=== PATIENT | male | born 1955 | race Caucasian/White ===

== ENCOUNTER 2019-07-26 13:20 | Inpatient (IN) | payer MEDICAID, OTHER ==
[~2019-07-26] VITALS: Ht 177.8 cm; Wt 246.3 kg
[~2019-07-26 13:20] MED LIST: AMLO10TA7 PO; CITA40TA11 PO; DIGO250T16 PO; HYDR25TA4 PO; LOSA25TA3 PO; METO25TA4 PO; WARF2.5T47 PO
--- NOTE | 2019-07-26 13:25 | NUR ---
PT BIBRA FROM HOME C/O TESTICULAR SWELLING FOR 3 WEEKS, PT IS AAOX4, NOT IN RESPIRATORY DISTRESS, HOOKED TO MONITOR, KEPT RESTED AND COMFORTABLE, WILL CONTINUE TO MONITOR.
--- NOTE | 2019-07-26 13:35 | NUR ---
SEEN AND EXAMINED BY AVANI WEAVER
--- NOTE | 2019-07-26 13:40 | NUR ---
IV LINE ESTABLISHED BLOOD DRAWN AND SENT TO LAB.
[2019-07-26 13:55] LABS: BASOPHILS # (AUTO) 0.1 /CMM (0.0-0.2); BASOPHILS % (AUTO) 1.4 % (0.0-2.0); HEMATOCRIT 40 % (39-51); HEMOGLOBIN 12.8 g/dL (13.5-17.5); LYMPHOCYTES # (AUTO) 1.2 /CMM (0.8-4.8); LYMPHOCYTES % (AUTO) 21.1 % (20.0-44.0); MEAN CORPUSCULAR HGB CONC 32 g/dl (31.0-36.0); MEAN CORPUSCULAR VOLUME 92 fL (80-96); MONOCYTES # (AUTO) 0.6 /CMM (0.1-1.30); MONOCYTES % (AUTO) 10.6 % (2.0-12.0); NEUTROPHILS # (AUTO) 3.6 /CMM (1.8-8.9); NEUTROPHILS % (AUTO) 63.9 % (43.0-81.0); PLATELET COUNT (AUTO) 174 /CMM (150-450); RED BLOOD CELL COUNT(AUTO) 4.32 MIL/uL (4.5-6.0); WHITE BLOOD COUNT (AUTO) 5.6 K/uL (4.3-11.0)
--- NOTE | 2019-07-26 14:00 | NUR ---
AQUATIC PHYSIOTHERAPIST AT BEDSIDE FOR XRAY.
[2019-07-26 14:03] LABS: CALCIUM, SERUM 8.9 mg/dL (8.5-10.1); CARBON DIOXIDE 33 mmol/L (21-32); CHLORIDE 103 mmol/L (98-107); CREATININE 0.8 mg/dL (0.6-1.3); GLUCOSE 91 mg/dL (74-106); POTASSIUM 3.9 mmol/L (3.5-5.1); SODIUM SERUM 140 mmol/L (136-145); UREA NITROGEN, BLOOD 12 mg/dL (7-18)
[2019-07-26 14:20] LABS: ALANINE AMINOTRANSFERASE 20 U/L (12-78); ALBUMIN 2.8 g/dL (3.4-5.0); ALKALINE PHOSPHATASE 91 U/L (46-116); ASPARTATE AMINOTRANSFERASE 23 U/L (15-37); BILIRUBIN,DIRECT 0.4 mg/dL (0.0-0.2); BILIRUBIN,TOTAL 0.9 mg/dL (0.2-1.0); TOTAL PROTEIN, SERUM 7.6 g/dL (6.4-8.2)
[2019-07-26] MEDS ORDERED: NITROGLYCERIN PACKET 1 GM PACKET ONE (14:29)
[2019-07-26] MEDS ORDERED: NITROGLYCERIN PACKET 1 GM PACKET TD ONE (14:30)
[2019-07-26] MEDS ORDERED: ASPIRIN 81 MG TAB.CHEW PO ONE (14:30)
[2019-07-26] MEDS ORDERED: BUMETANIDE INJ 4 MG in IV NS 0.9% 50 ML IV ONE (14:30)
[2019-07-26] MEDS ORDERED: ASPIRIN 81 MG TAB.CHEW ONE (14:30)
[2019-07-26] MEDS ORDERED: METF-440 PO (14:39)
[2019-07-26] MEDS ORDERED: FURO20TA4 PO (14:39)
[2019-07-26] MEDS ORDERED: SERT100T12 PO (14:39)
[2019-07-26] MEDS ORDERED: TAMS-12 PO (14:39)
[2019-07-26] MEDS ORDERED: LISI30TA4 PO (14:39)
[2019-07-26] MEDS ORDERED: BUPR-51 PO (14:41)
--- NOTE | 2019-07-26 15:18 | NUR ---
PT PLACED ON O2 VIA NC @ 2LPM. NOTED 02 SAT @ 90% ON RA. SATTING 96% AFTER O2.
--- NOTE | 2019-07-26 16:00 | NUR ---
URINE SPECIMEN COLLECTED AND SENT TO LAB.
[2019-07-26 16:05] LABS: BILIRUBIN,URINE SMALL (NEGATIVE); BLOOD, URINE Small Ery/uL (NEGATIVE); COLOR,URINE Yellow (YELLOW); KETONES,URINE Negative (NEGATIVE); LEUKOCYTE ESTERASE ,URINE Negative (NEGATIVE); NITRITE, URINE Negative (NEGATIVE); PROTEIN,URINE Trace mg/dl (NEGATIVE); UGLUCOSE Negative (NEGATIVE)
[2019-07-26 16:29] LABS: APPEARANCE,URINE SLIGHTLY HAZY (CLEAR); BACTERIA,URINE Rare /HPF (None Seen); MUCUS,URINE Few /LPF (None Seen); SQUAMOUS EPITHELIAL CELL,UR Few /HPF (None Seen); URINE AMORPHOUS URATE Few /HPF (None Seen); WBC,URINE 0-2 /HPF (0-3)
--- NOTE | 2019-07-26 17:55 | NUR ---
PT REPORT GIVEN TO RN UCHE FOR LORA.
--- NOTE | 2019-07-26 18:42 | NUR ---
PT BEING TRANSPORTED TO UNIT WITH EMT AND RN AT BEDSIDE W/ ALCS PROTOCOL.
--- NOTE | 2019-07-26 19:00 | NUR ---
KEYSEATER OPERATOR NOTES Received patient awake on bed. On O2 inhalation with mild SOB/dyspnea on exertion. Able to move self on bed. Ambulatory with walker. On tele monitor with V-Pacing noted. Patient denies any discomfort at this time. Admission orders noted, pharmacy notified for the Bumex, awaiting for delivery of meds. Kept on bed clean, dry and comfortable. Call light within easy reach. On fall and aspiration precautions. Will continue to monitor accordingly.
[2019-07-26] MEDS ORDERED: MAG HYDROX/AL HYDROX/SIMETH 30 ML UDC PO PRN (19:30)
[2019-07-26] MEDS ORDERED: HYDROCODONE/APAP 5/325MG 1 EACH TABLET PO PRN (19:30)
[2019-07-26] MEDS ORDERED: ONDANSETRON HCL/PF 4 MG/2 ML VIAL IVP PRN (19:30)
[2019-07-26] MEDS ORDERED: ACETAMINOPHEN 325 MG TABLET PO PRN (19:30)
[2019-07-26] MEDS ORDERED: MAGNESIUM HYDROXIDE 30 ML UDC PO PRN (19:30)
[2019-07-26] MEDS ORDERED: Z GUARD REMEDY 2 OZ OINT TP PRN (19:30)
[2019-07-26] MEDS ORDERED: ZOLPIDEM TARTRATE 5 MG TABLET PO PRN (19:30)
[2019-07-26 20:00] VITALS: BP 105/72
[2019-07-26] MEDS ORDERED: BUMETANIDE INJ 12 MG in IV NS 0.9% 72 ML IV ONE (20:00)
[2019-07-26] MEDS: CEFTRIAXONE 1 G in IV D5W 50 ML IV SCH (20:52)
--- NOTE | 2019-07-26 22:23 | NUR ---
RN NOTES Received Bumex at this time. Administered as ordered.
[2019-07-27] VITALS: BP 112/68
[2019-07-27 04:00] VITALS: BP 110/70
[2019-07-27] MEDS: FUROSEMIDE 40 MG/4 ML VIAL IV SCH ×3 (06:18→14:10)
--- NOTE | 2019-07-27 06:33 | NUR ---
RN CLOSING NOTES Cleater reviewed patient's chart. New orders noted and carried. Discontinued tele monitoring as ordered. On bed, with O2 inhalation via NC, saturating well, minimal dyspnea on exertion noted. Due meds given as ordered. All nursing needs attended. On fall and aspiration precautions. Kept on bed clean, dry and comfortable. Endorsed.
--- NOTE | 2019-07-27 07:00 | NUR ---
MS/RN Patient received Patient received from night shift manager. A/O X4, vital signs stable, denies pain or discomfort. Edema noted to bilateral lower extremites and scrotum, encouraged to elevate. Cellulitis also to both lower legs, patient already has order for rocephin daily. Call light within reach, will continue to monitor and ensure safety.
--- NOTE | 2019-07-27 07:45 | NUR ---
MS/RN S/B Dr Lua Seen by Dr Lua - pacemaker to be checked by [facility] evalution documented, but no order.
[2019-07-27 08:00] VITALS: BP 123/69
--- NOTE | 2019-07-27 08:32 | NUR ---
WOUND CARE CONSULT: PT PRESENTS WITH BILATERAL WEEPING OF LOWER LEGS WITH VERY THICKENED SKIN AND EDEMA, PRESENT ON ADMISSION. DR SANCHES NOTIFIED OF DPM CONSULT REQUEST. PT NOTED TO HAVE VERY SWOLLENT SCROTAL AREA, PRESENT ON ADMISSION. RECOMMENDATIONS MADE FOR SKIN PROTECTION. DISCUSSED WITH NURSING STAFF. WILL SEE PRN. MYERS IN AGREEMENT WITH PLAN OF CARE. Addendum: 07/27/19 at 0833 by PERFECTO NEAL WNDNU Amended: Links added.
[2019-07-27] MEDS: SERTRALINE HCL 50 MG TABLET PO SCH (08:39)
[2019-07-27] MEDS: METFORMIN 500 MG TABLET PO SCH ×2 (08:40→17:25)
[2019-07-27] MEDS: LISINOPRIL (10MG) 10 MG TABLET PO SCH (08:41)
[2019-07-27 08:42] LABS: BASOPHILS % (AUTO) 0.5 % (0.0-2.0); EOSINOPHILS % (AUTO) 3.5 % (0.0-6.0); HEMATOCRIT 40 % (39-51); HEMOGLOBIN 12.8 g/dL (13.5-17.5); LYMPHOCYTES # (AUTO) 1.2 /CMM (0.8-4.8); LYMPHOCYTES % (AUTO) 19.6 % (20.0-44.0); MEAN CORPUSCULAR HGB CONC 32 g/dl (31.0-36.0); MEAN CORPUSCULAR VOLUME 91 fL (80-96); MONOCYTES # (AUTO) 0.7 /CMM (0.1-1.30); MONOCYTES % (AUTO) 11.2 % (2.0-12.0); NEUTROPHILS # (AUTO) 3.8 /CMM (1.8-8.9); NEUTROPHILS % (AUTO) 65.2 % (43.0-81.0); PLATELET COUNT (AUTO) 192 /CMM (150-450); RED BLOOD CELL COUNT(AUTO) 4.37 MIL/uL (4.5-6.0); WHITE BLOOD COUNT (AUTO) 5.9 K/uL (4.3-11.0)
[2019-07-27] MEDS: ENOXAPARIN SODIUM 40 MG/0.4 ML DISP.SYRIN SQ SCH (08:47)
[2019-07-27] MEDS: BUPROPION XL 150 MG TAB.ER.24 PO SCH (08:49)
[2019-07-27 09:04] LABS: CALCIUM, SERUM 8.6 mg/dL (8.5-10.1); CREATININE 0.8 mg/dL (0.6-1.3); MAGNESIUM 1.8 mg/dL (1.8-2.4); PHOSPHORUS 3.6 mg/dL (2.5-4.9); POTASSIUM 3.4 mmol/L (3.5-5.1)
[2019-07-27 09:14] LABS: THYROID STIMULATING HORMONE 1.941 uIU/mL (0.358-3.74)
--- NOTE | 2019-07-27 09:45 | NUR ---
MS/RN S/B Dr Abbott Seen by MD - labs ordered for tomorrow, arterial doppler ordered.
--- NOTE | 2019-07-27 10:36 | NUR ---
MS/RN Mattress Bariatric bed ordered from central supply, patient's weight 545lbs.
--- NOTE | 2019-07-27 13:35 | NUR ---
MS/institutional cook Call received from lab - blood culture drawn yesterday results -gram positive cocci in clusters. Will notify Dr Abbott.
--- NOTE | 2019-07-27 13:44 | NUR ---
MS/RN Orders Dr Abbott made aware of blood culture results, ID consult ordered.
--- NOTE | 2019-07-27 15:45 | NUR ---
Social service consult requested by MD due to pt residing alone. Per MD notes and chart review, pt is a 64-year-old male, brought in by paramedics. Patient lives by himself in an apartment. Patient states he has been having gradually worsening leg and testicular swelling for 1 month worse over the past 3 or 4 days. It is to the point where the patient cannot walk. Patient was found to have BP 1600, CXR suspicious for CHF, oxygen saturation of 89% and diffuse anasarca and was started on Bumex drip in ED. He also has bilateral foot wounds with erythema and increased warmth suspicious for cellulitis and will be started on IV abx. In lieu of Covid-19, HOUSE MOVER SUPERVISOR conducted the assessment via phone. HOUSE MOVER SUPERVISOR introduced self, explained the role of the SW and purpose of the call. Pt is alert and oriented x 4. Pt is very pleasant and cooperative. Pt is mood congruent. Pt reports, he lives by himself in an apartment in [place]. Pt is retired and receives SSI and food stamps. Pt is and his in 2006. Pt has two adult children that are supportive of him. Pt is ambulatory with a walker. Pt states he is independent with his ADLS but it is getting harder. Pt's doctor provides pt transportation to his doctor appointments. Pt has a grocery store across the street from his house and goes there to get groceries or at times his IH[employer] worker gets the groceries for him. Pt receives 100+ hours of IHSS per month. HOUSE MOVER SUPERVISOR encouraged pt to reach out to his [facility] SW and request an increase in hours since he was hospitalized. Pt denies any alcohol and drug use. Pt has a psychiatric diagnosis of Depression and takes medication for it. Pt denies suicidal and homicidal ideations and visual/auditory hallucinations at this time. HOUSE MOVER SUPERVISOR provided pt with active listening, supportive counseling, validation of feelings and emotional support. HOUSE MOVER SUPERVISOR encouraged pt to reach out to Surgeon Partner as needed. No other social service needs are requested at this time.
[2019-07-27 16:00] VITALS: BP 106/70
--- NOTE | 2019-07-27 18:54 | NUR ---
MS/RN End note Patient remains in stable condition, denies pain. Encouraged to keep both legs and scrotum elevated on pillow to help reduce edema. Will endorse to material handler 1st shift.
--- NOTE | 2019-07-27 19:30 | NUR ---
MS RN OPEN NOTES RECEIVED REPORT FROM AM NURSE. PATIENT IS WATCHING TV IN BED. CALL LIGHT IS WITHIN REACH. BED IS IN LOWEST LOCKED POSITION WITH SIDE RAILS UP X2, SEMI FOWLERS. ON 4L NASAL CANULA. NO SOB/ ACUTE RESPIRATORY DISTRESS NOTED. WILL CONTINUE TO MONITOR.
[2019-07-27] MEDS: CEFTRIAXONE 1 G in IV D5W 50 ML IV SCH (19:40)
[2019-07-27 20:33] VITALS: BP 97/58
[2019-07-27] MEDS ORDERED: FEE PK DOSING 1 MIN EA MC ONE (20:40)
[2019-07-27] MEDS ORDERED: VANCOMYCIN 1.25 GM in IV D5W 250 ML IV ONE (21:00)
[2019-07-27] MEDS: MUPIROCIN OINT 2% 22 GM TUBE SCH (21:44)
[2019-07-27] MEDS: TAMSULOSIN 0.4 MG CAP.SR.24H PO SCH (21:58)
[2019-07-28] MEDS: VANCOMYCIN 1 GM in IV D5W 250 ML IV SCH ×3 (04:00→21:37)
--- NOTE | 2019-07-28 06:43 | NUR ---
RN CLOSE NOTES PATIENT IS LAYING IN BED. BED IS IN LOWEST LOCKED POSITION WITH SIDE RAILS UP X2. RECEIVED BARIMAXX BED DURING ELECTRICAL ASSISTANT. ON 3L NASAL CANULA SATURATING AT 96%. NO SOB/ ACUTE RESPIRATORY DISTRESS NOTED. NO COMPLAINTS OF PAIN AT THE MOMENT. R AC #18G IS PATENT AND INTACT. ALL DUE MEDS GIVEN. A/O X4. CALL LIGHT IS WITHIN REACH. WILL ENDORSE TO AM NURSE.
[2019-07-28 07:27] LABS: BASOPHILS % (AUTO) 0.9 % (0.0-2.0); EOSINOPHILS % (AUTO) 4.5 % (0.0-6.0); HEMATOCRIT 38 % (39-51); HEMOGLOBIN 12.4 g/dL (13.5-17.5); LYMPHOCYTES # (AUTO) 1.1 /CMM (0.8-4.8); LYMPHOCYTES % (AUTO) 21.9 % (20.0-44.0); MEAN CORPUSCULAR HGB CONC 32 g/dl (31.0-36.0); MEAN CORPUSCULAR VOLUME 92 fL (80-96); MONOCYTES # (AUTO) 0.7 /CMM (0.1-1.30); MONOCYTES % (AUTO) 13.4 % (2.0-12.0); NEUTROPHILS # (AUTO) 3.1 /CMM (1.8-8.9); NEUTROPHILS % (AUTO) 59.3 % (43.0-81.0); PLATELET COUNT (AUTO) 184 /CMM (150-450); RED BLOOD CELL COUNT(AUTO) 4.16 MIL/uL (4.5-6.0); WHITE BLOOD COUNT (AUTO) 5.2 K/uL (4.3-11.0)
[2019-07-28 07:56] LABS: CALCIUM, SERUM 8.8 mg/dL (8.5-10.1); CREATININE 0.8 mg/dL (0.6-1.3); PHOSPHORUS 4.1 mg/dL (2.5-4.9); POTASSIUM 3.3 mmol/L (3.5-5.1)
[2019-07-28 08:00] VITALS: BP 112/74
--- NOTE | 2019-07-28 08:00 | NUR ---
MS RN NOTES PATIENT IN BED RESTING NO SOB OR ACUTE DISTRESS NOTED. PATIENT ALERT, ORIENTED X3. BED IN LOW LOCKED POSITION CALL LIGHT WITHIN REACH. WILL CONTINUE TO MONITOR.
[2019-07-28] MEDS: BUPROPION XL 150 MG TAB.ER.24 PO SCH (08:22)
[2019-07-28] MEDS: METFORMIN 500 MG TABLET PO SCH ×2 (08:23→17:07)
[2019-07-28] MEDS: SERTRALINE HCL 50 MG TABLET PO SCH (08:23)
[2019-07-28] MEDS: ENOXAPARIN SODIUM 40 MG/0.4 ML DISP.SYRIN SQ SCH (08:24)
[2019-07-28] MEDS: LISINOPRIL (10MG) 10 MG TABLET PO SCH (08:29)
[2019-07-28] MEDS: MUPIROCIN OINT 2% 22 GM TUBE SCH ×2 (08:33→21:37)
[2019-07-28] MEDS: POTASSIUM CHLORIDE 20 MEQ TAB.PRT.SR PO SCH ×3 (11:36→14:00)
[2019-07-28] MEDS: FUROSEMIDE 100 MG/10 ML VIAL IV SCH ×3 (11:36→19:54)
--- NOTE | 2019-07-28 12:15 | NUR ---
MS RN NOTES REPORT GIVEN TO DUDLEY FOR CONTINUATION OF CARE. PATIENT IN STABLE CONDITION.
--- NOTE | 2019-07-28 12:19 | NUR ---
MS/RN Patient received Patient received from Jeannie. New heplock currently beinginserted, no needs at this time.
--- NOTE | 2019-07-28 14:17 | NUR ---
MS/SHADY Smith hung as ordered, trough due to be drawn at 8p this evening.
[2019-07-28 16:00] VITALS: BP 104/74
[2019-07-28 18:00] VITALS: BP 104/74
--- NOTE | 2019-07-28 18:20 | NUR ---
MS/RN End note Continue to encourage patient to keep lower extremities elevated on pillows to help reduce swelling. Vital signs stable, no pain. All medications administered as ordered. Will endorse to warehouse analyst.
--- NOTE | 2019-07-28 19:10 | NUR ---
RN OPENING NOTES Received patient awake on bed, on O2 ang 3LPM, saturating well no SOB/respiratory distress noted at this time. Patient denies any discomfort at this time. Kept BLE elevated. On bed clean, dry and comfortable. Call light within easy reach. On fall and aspiration precautions. Will continue to monitor accordingly.
[2019-07-28] MEDS: CEFTRIAXONE 1 G in IV D5W 50 ML IV SCH (19:54)
[2019-07-28 20:00] VITALS: BP 109/59
[2019-07-28] MEDS: TAMSULOSIN 0.4 MG CAP.SR.24H PO SCH (21:39)
[2019-07-29] MEDS: VANCOMYCIN 1 GM in IV D5W 250 ML IV SCH ×3 (05:15→21:14)
[2019-07-29 06:50] LABS: BASOPHILS % (AUTO) 0.9 % (0.0-2.0); EOSINOPHILS % (AUTO) 5.1 % (0.0-6.0); HEMATOCRIT 39 % (39-51); HEMOGLOBIN 12.8 g/dL (13.5-17.5); LYMPHOCYTES # (AUTO) 1.1 /CMM (0.8-4.8); LYMPHOCYTES % (AUTO) 22.2 % (20.0-44.0); MEAN CORPUSCULAR HGB CONC 33 g/dl (31.0-36.0); MEAN CORPUSCULAR VOLUME 92 fL (80-96); MONOCYTES # (AUTO) 0.7 /CMM (0.1-1.30); MONOCYTES % (AUTO) 14.1 % (2.0-12.0); NEUTROPHILS # (AUTO) 2.8 /CMM (1.8-8.9); NEUTROPHILS % (AUTO) 57.7 % (43.0-81.0); PLATELET COUNT (AUTO) 169 /CMM (150-450); RED BLOOD CELL COUNT(AUTO) 4.28 MIL/uL (4.5-6.0); WHITE BLOOD COUNT (AUTO) 4.8 K/uL (4.3-11.0)
[2019-07-29 07:34] LABS: ALBUMIN 2.8 g/dL (3.4-5.0); BILIRUBIN,TOTAL 0.7 mg/dL (0.2-1.0); CALCIUM, SERUM 8.8 mg/dL (8.5-10.1); CREATININE 0.9 mg/dL (0.6-1.3); MAGNESIUM 1.9 mg/dL (1.8-2.4); PHOSPHORUS 3.9 mg/dL (2.5-4.9); POTASSIUM 4.2 mmol/L (3.5-5.1); TOTAL PROTEIN, SERUM 7.7 g/dL (6.4-8.2)
[2019-07-29 08:00] VITALS: BP 107/71
--- NOTE | 2019-07-29 08:00 | NUR ---
m/s rn long term care: initial assessment received pt in bed awake, a/ox4. no c/o pain or any discomfort. ble cellulitis still swelling and with redness. encourage to elevate ble. no distress noted. will continue to monitor.
[2019-07-29] MEDS: BUPROPION XL 150 MG TAB.ER.24 PO SCH (08:35)
[2019-07-29] MEDS: SERTRALINE HCL 50 MG TABLET PO SCH (08:35)
[2019-07-29] MEDS: METFORMIN 500 MG TABLET PO SCH ×2 (08:35→16:52)
[2019-07-29] MEDS: LISINOPRIL (10MG) 10 MG TABLET PO SCH (08:35)
[2019-07-29] MEDS: MUPIROCIN OINT 2% 22 GM TUBE SCH ×2 (08:36→21:14)
[2019-07-29] MEDS: ENOXAPARIN SODIUM 40 MG/0.4 ML DISP.SYRIN SQ SCH (08:37)
--- NOTE | 2019-07-29 10:00 | NUR ---
m/s bass singer: notes resting comfortable in bed. no distress noted. will continue to monitor.
--- NOTE | 2019-07-29 12:00 | NUR ---
m/s horse groomer: notes lunch served. instructed to call for assistance.
--- NOTE | 2019-07-29 14:00 | NUR ---
m/s country manager: notes resting quietly in bed. no distress noted. will continue to monitor.
[2019-07-29 16:00] VITALS: BP 106/74
--- NOTE | 2019-07-29 17:00 | NUR ---
m/s global creative chairman: notes dinner served. instructed to call for assistance. will continue to monitor.
--- NOTE | 2019-07-29 19:00 | NUR ---
m/s process control engineer: notes report given to kevin (rn) for continuity of care.
--- NOTE | 2019-07-29 19:10 | NUR ---
RN OPENING NOTES Received patient awake on bed on O2 inhalation via NC, no SOB/respiratory distress noted. Reminded patient to keep bilateral BLE elevated. No s/sx of discomfort noted at this time. Kept on bed clean, dry and comfortable. Call light within easy reach. On fall and aspiration precautions. Will continue to monitor accordingly.
[2019-07-29 20:00] VITALS: BP 108/78
[2019-07-29] MEDS: CEFTRIAXONE 1 G in IV D5W 50 ML IV SCH (20:34)
[2019-07-29] MEDS: TAMSULOSIN 0.4 MG CAP.SR.24H PO SCH (21:16)
[2019-07-30] MEDS: VANCOMYCIN 1 GM in IV D5W 250 ML IV SCH ×3 (04:17→22:04)
--- NOTE | 2019-07-30 06:41 | NUR ---
RN CLOSING NOTES Patient asleep, easily awaken. On O2 PRN, no SOB/respiratory distress noted at this time. All nursing needs attended. Due meds given as ordered. Reinforced to patient to keep BLE and scrotum elevated. Kept on bed clean, dry and comfortable. On fall and aspiration precautions. Endorsed.
[2019-07-30 07:04] LABS: BASOPHILS % (AUTO) 0.7 % (0.0-2.0); EOSINOPHILS % (AUTO) 4.5 % (0.0-6.0); HEMATOCRIT 40 % (39-51); HEMOGLOBIN 12.9 g/dL (13.5-17.5); LYMPHOCYTES # (AUTO) 1.2 /CMM (0.8-4.8); LYMPHOCYTES % (AUTO) 23.2 % (20.0-44.0); MEAN CORPUSCULAR HGB CONC 33 g/dl (31.0-36.0); MEAN CORPUSCULAR VOLUME 93 fL (80-96); MONOCYTES # (AUTO) 0.6 /CMM (0.1-1.30); MONOCYTES % (AUTO) 12.1 % (2.0-12.0); NEUTROPHILS % (AUTO) 59.5 % (43.0-81.0); PLATELET COUNT (AUTO) 171 /CMM (150-450); RED BLOOD CELL COUNT(AUTO) 4.27 MIL/uL (4.5-6.0); WHITE BLOOD COUNT (AUTO) 5.1 K/uL (4.3-11.0)
[2019-07-30 07:39] LABS: CALCIUM, SERUM 8.9 mg/dL (8.5-10.1); CREATININE 0.8 mg/dL (0.6-1.3); PHOSPHORUS 3.4 mg/dL (2.5-4.9); POTASSIUM 3.6 mmol/L (3.5-5.1)
[2019-07-30 08:00] VITALS: BP 115/80
[2019-07-30] MEDS: LISINOPRIL (10MG) 10 MG TABLET PO SCH (09:00)
--- NOTE | 2019-07-30 09:18 | NUR ---
INFORMATION SENT:FACESHEET, PROGRESS NOTES 07/28, 24HRS REPORT,UR 07/28.PS FORM FAXED TO:[facility] [id number] [phone] FAX SENT BY ASHLY
[2019-07-30] MEDS: SERTRALINE HCL 50 MG TABLET PO SCH (09:42)
[2019-07-30] MEDS: METFORMIN 500 MG TABLET PO SCH ×2 (09:42→18:14)
[2019-07-30] MEDS: BUPROPION XL 150 MG TAB.ER.24 PO SCH (09:42)
[2019-07-30] MEDS: ENOXAPARIN SODIUM 40 MG/0.4 ML DISP.SYRIN SQ SCH (09:43)
[2019-07-30] MEDS: MUPIROCIN OINT 2% 22 GM TUBE SCH ×2 (09:51→21:24)
[2019-07-30 16:00] VITALS: BP 114/76
--- NOTE | 2019-07-30 18:00 | NUR ---
states some discomfort in scrotum,denies need for pain med.instructed several times on safety issues.
--- NOTE | 2019-07-30 19:25 | NUR ---
MS RN: RECEIVED PATIENT Patient is sitting at the edge of the bed. Tolerating room air, denies SOB. BLE swelling, encouraged to elevate when in bed, verbalized understanding, no c/o pain. Fall precaution maintained.
[2019-07-30 20:00] VITALS: BP 130/61
[2019-07-30 20:15] VITALS: BP 130/61
[2019-07-30] MEDS: CEFTRIAXONE 1 G in IV D5W 50 ML IV SCH (20:23)
[2019-07-30] MEDS: TAMSULOSIN 0.4 MG CAP.SR.24H PO SCH (21:23)
[2019-07-31] MEDS: VANCOMYCIN 1 GM in IV D5W 250 ML IV SCH ×2 (05:13→13:05)
--- NOTE | 2019-07-31 06:24 | NUR ---
MS RN: END OF SHIFT REPORT Patient in bed, awake, reports slept well last night. BLE swelling; skin thickening, denies pain. IV antibiotic as scheduled, afebrile overnight. MRSA nares, Bactroban ointment [id number]. Ambulates to the bathroom with FWW, had BM this shift. Fall precaution maintained. Will endorse to oncoming RN.
[2019-07-31 06:51] LABS: BASOPHILS % (AUTO) 0.5 % (0.0-2.0); EOSINOPHILS % (AUTO) 4.6 % (0.0-6.0); HEMATOCRIT 41 % (39-51); LYMPHOCYTES # (AUTO) 0.9 /CMM (0.8-4.8); LYMPHOCYTES % (AUTO) 19.2 % (20.0-44.0); MEAN CORPUSCULAR HGB CONC 32 g/dl (31.0-36.0); MEAN CORPUSCULAR VOLUME 93 fL (80-96); MONOCYTES # (AUTO) 0.6 /CMM (0.1-1.30); MONOCYTES % (AUTO) 12.5 % (2.0-12.0); NEUTROPHILS % (AUTO) 63.2 % (43.0-81.0); PLATELET COUNT (AUTO) 166 /CMM (150-450); RED BLOOD CELL COUNT(AUTO) 4.41 MIL/uL (4.5-6.0); WHITE BLOOD COUNT (AUTO) 4.8 K/uL (4.3-11.0)
[2019-07-31 06:53] LABS: CALCIUM, SERUM 9.2 mg/dL (8.5-10.1); CREATININE 0.6 mg/dL (0.6-1.3); MAGNESIUM 2.1 mg/dL (1.8-2.4); PHOSPHORUS 3.4 mg/dL (2.5-4.9); POTASSIUM 4.1 mmol/L (3.5-5.1)
--- NOTE | 2019-07-31 07:10 | NUR ---
MS RN OPENING NOTES RECEIVED PT IN BED AWAKE AT THIS TIME. AOX4, PT ON O2 31PM VIA NC AND SATURATING WELL . NO SOB NOTED, BREATHING EVEN AND UNLABORED. NO S/S OF ANY ACUTE DISTRESS/DISCOMFORT NOTED. IV ACCESS TO RIGHT WRIST G#22, INTACT AND PATENT. BLE KEPT ELEVATED. SAFETY PRECAUTION IN PLACE. BED IN LOCKED LOWEST POSITION, SIDE RAILS UP X2, CALL LIGHT WITHIN REACH. WILL CONTINUE TO MONITOR.
[2019-07-31 08:00] VITALS: BP 142/68
[2019-07-31] MEDS: ENOXAPARIN SODIUM 40 MG/0.4 ML DISP.SYRIN SQ SCH (08:51)
[2019-07-31] MEDS: BUPROPION XL 150 MG TAB.ER.24 PO SCH (10:00)
[2019-07-31] MEDS: LISINOPRIL (10MG) 10 MG TABLET PO SCH (10:00)
[2019-07-31] MEDS: SERTRALINE HCL 50 MG TABLET PO SCH (10:01)
[2019-07-31] MEDS: METFORMIN 500 MG TABLET PO SCH ×2 (10:01→17:43)
[2019-07-31] MEDS: MUPIROCIN OINT 2% 22 GM TUBE SCH (10:03)
[2019-07-31] MEDS ORDERED: SULF1TAB48 PO (14:24)
[2019-07-31] MEDS ORDERED: APIX5TAB4 PO (14:24)
[2019-07-31] MEDS ORDERED: LEVO500T90 PO (14:24)
[2019-07-31 16:00] VITALS: BP 116/75
--- NOTE | 2019-07-31 17:56 | NUR ---
MS TREND INVESTIGATOR NOTES PT DISCHARGED AT THIS TIME TO HOME WITH HOME HEALTH. PT STABLE AT THIS TIME. V/S TAKEN AND STABLE, NO SOB NOTED, PT SATURATING WELL ON RA AT 94%. NO C/O PAIN AT THIS TIME. IV REMOVED, SKIN IN TACT, NO BLEEDING NOTED. DRESSING IN PLACE. ALL NEEDS PROVIDED FOR PER ORDER. ALL CONCERNS ADDRESSED.ALL BELONGINGS ACCOUNTED FOR, SIGNED AND FILED. DISCHARGE TEACHINGS AND DOCUMENTATION PROVIDED AND HANDED TO PATIENT. PT VERBALIZED UNDERSTANDING. PICTURES TAKEN AND FILED. PT WHEELED TO THE LOBBY TO BE PICKED UP BY OMAIR[facility]. PT ACCOMPANIED TO LOBBY BY HUNTER CHILEL.
== END 2019-07-31 19:45 | disposition home health service (06) | DRG 207 ==
LOC: ER 13:23 → TELE 19:29 → MED 07-27 08:42
PROVIDERS: ADMIT Student in an Organized Health Care Education/Training Program; ATTEND Student in an Organized Health Care Education/Training Program
DX: I87.8 Other specified disorders of veins (principal); D68.59 Other primary thrombophilia; I27.20 Pulmonary hypertension, unspecified; E44.0 Moderate protein-calorie malnutrition; L03.115 Cellulitis of right lower limb; E66.01 Morbid (severe) obesity due to excess calories; L03.116 Cellulitis of left lower limb; I48.91 Unspecified atrial fibrillation; D64.9 Anemia, unspecified; Z68.45 Body mass index [BMI] 70 or greater, adult; I73.9 Peripheral vascular disease, unspecified; I89.0 Lymphedema, not elsewhere classified; I25.10 Atherosclerotic heart disease of native coronary artery without angina pectoris; Z95.0 Presence of cardiac pacemaker; N49.2 Inflammatory disorders of scrotum; Z22.322 Carrier or suspected carrier of Methicillin resistant Staphylococcus aureus; G47.33 Obstructive sleep apnea (adult) (pediatric); I87.2 Venous insufficiency (chronic) (peripheral); Z79.01 Long term (current) use of anticoagulants; I11.0 Hypertensive heart disease with heart failure; I50.32 Chronic diastolic (congestive) heart failure
CPT/HCPCS: 36415; 71045-TC; 76870-TC; 80048-TC; 80053-TC; 80061-TC; 80076-TC; 80202-TC; 81000-TC; 83605-TC; 83735-TC; 83880; 84100-TC; 84443-TC; 84484-TC; 85025-TC; 85730-TC; 87040-TC; 87081-TC; 87086-TC; 93307-TC; 93970-TC; 97116-TC; 97530-TC; A4216; A4217; A6403; G0378; J0696; J1650; J1940; J3370; J3490; J7030; J7050; J7060